=== PATIENT | female | born 1955 | race Caucasian/White ===

== ENCOUNTER → 2018-10-30 | Outpatient (CLI) | payer BC ==
--- NOTE | 2018-10-30 12:50 | RADIOLOGY REPORT (SQ) ---
EXAM DESCRIPTION: CHEST PA/LATERAL COMPLETED DATE/TIME: 10/30/2018 12:28 pm REASON FOR STUDY: PRE-OP COMPARISON: None. EXAM PARAMETERS: NUMBER OF VIEWS: two views TECHNIQUE: Digital Frontal and Lateral radiographic views of the chest acquired. RADIATION DOSE: NA LIMITATIONS: none FINDINGS: LUNGS AND PLEURA: No opacities, masses or pneumothorax. No pleural effusion. MEDIASTINUM AND HILAR STRUCTURES: No masses or contour abnormalities. HEART AND VASCULAR STRUCTURES: Heart normal size. No evidence for failure. BONES: No acute findings. HARDWARE: None in the chest. OTHER: No other significant finding. IMPRESSION: NO SIGNIFICANT RADIOGRAPHIC FINDING IN THE CHEST. TECHNICAL DOCUMENTATION: JOB ID: [id number] [employer]- All Rights Reserved Reading location - IP/workstation name: [email or web address]
[2018-10-30 13:10] LABS: APPEARANCE,URINE SLIGHTLY-CLOUDY; BILIRUBIN,URINE NEGATIVE (NEGATIVE); COLOR,URINE AMBER; GLUCOSE, URINE NEGATIVE (NEGATIVE); KETONES,URINE TRACE mg/dL (NEGATIVE); LEUKOCYTE ESTERASE,URINE TRACE (NEGATIVE); NITRITE,URINE NEGATIVE (NEGATIVE); PROTEIN,URINE 30 mg/dL (NEGATIVE); UROBILINOGEN,URINE NEGATIVE mg/dL (<2.0)
[2018-10-30 13:22] LABS: ABSOLUTE BASOPHILS # (AUTO) 0.1 10^3/uL (0.0-0.2); ABSOLUTE LYMPHOCYTES (AUTO) 2.9 10^3/uL (0.5-4.7); ABSOLUTE MONOCYTES (AUTO) 0.9 10^3/uL (0.1-1.4); ABSOLUTE NEUT (AUTO) 5.8 10^3/uL (1.7-8.2); BASOPHILS % (AUTO) 1.1 % (0-2); EOSINOPHILS % (AUTO) 0.5 % (0-6); HEMATOCRIT 45.4 % (36.0-47.0); HEMOGLOBIN 15.5 g/dL (12.0-15.5); LYMPHOCYTES % (AUTO) 29.9 % (13-45); MEAN CORPUSCULAR HEMOGLOBIN 31.3 pg (27.0-33.4); MEAN CORPUSCULAR HGB CONC 34.2 g/dL (32.0-36.0); MEAN CORPUSCULAR VOLUME 92 fl (80-97); MONOCYTES % (AUTO) 9.3 % (3-13); PLATELET COUNT 361 10^3/uL (150-450); RED BLOOD COUNT 4.97 10^6/uL (3.72-5.28); RED CELL DISTRIBUTION WIDTH 13.4 % (11.5-14.0); SEGMENTED NEUTROPHILS % (AUTO) 59.2 % (42-78); TOTAL CELLS COUNTED % (AUTO) 100 %; WHITE BLOOD COUNT 9.8 10^3/uL (4.0-10.5)
[2018-10-30 13:40] LABS: ANION GAP 11 (5-19); BLOOD UREA NITROGEN 11 mg/dL (7-20); CALCIUM 9.8 mg/dL (8.4-10.2); CARBON DIOXIDE 25 mmol/L (22-30); CHLORIDE 100 mmol/L (98-107); GLUCOSE 98 mg/dL (75-110); POTASSIUM 4.8 mmol/L (3.6-5.0)
--- NOTE | 2018-10-30 23:06 | EKG REPORT ---
SEVERITY:- ABNORMAL ECG - SINUS TACHYCARDIA PROBABLE INFERIOR INFARCT, OLD CONSIDER POSTERIOR WALL INVOLVEMENT : Confirmed by: Deena Jerez 30-Oct-2018 23:05:08
== END ==
LOC: OD 11:50
PROVIDERS: ATTEND Orthopaedic Surgery
DX: Z01.818 Encounter for other preprocedural examination (principal)
CPT/HCPCS: 36415; 71046; 80048; 81001; 85025; 93005; 93010

== ENCOUNTER → 2018-11-07 | Outpatient (CLI) | payer BC ==
--- NOTE | 2018-11-07 12:22 | WOMENS IMAGING REPORT ---
EXAM DESCRIPTION: BILAT SCREENING MAMMO W/CAD COMPLETED DATE/TIME: 11/07/2018 10:32 am REASON FOR STUDY: Z12.31 SCREENING MAMMO Z12.31 ENCNTR SCREEN MAMMOGRAM FOR MALIGNANT NEOPLASM OF B RE COMPARISON: None. TECHNIQUE: Standard craniocaudal and mediolateral oblique views of each breast recorded using [employer] l acquisition. LIMITATIONS: None. FINDINGS: No masses, calcifications or architectural distortion. No areas of suspicion. Read with the assistance of CAD. .[facility] - R2 Cenova Version 1.3 .[facility] - R2 Cenova Version 1.3 .[facility] - R2 Cenova Version 2.4 .[facility] [place] - R2 Cenova Version 2.4 .[facility] - R2 [employer] Officer Chief Version 9.2 IMPRESSION: NORMAL MAMMOGRAM. BIRADS 1. BREAST DENSITY: b. There are scattered areas of fibroglandular density. BIRAD: 1 NEGATIVE RECOMMENDATION: ROUTINE SCREENING COMMENT: The patient has been notified of the results by letter per SA requirements. Additional no tification policies are in place for contacting patient with suspicious or incomplete findings. Quality ID #225: The [employer] recommends an annual screening mammogram for women aged 40 years or over. This facility utilizes a reminder system to ensure that all patients receive reminder letters, and/or direct phone calls for appointments. This includes reminders for routine scr eening mammograms, diagnostic mammograms, or other Breast Imaging Interventions when appropriate. Th is patient will be placed in the appropriate reminder system. The [employer] (ACR) has developed recommendations for screening MRI of the breast s in certain patient populations, to be used in conjunction with mammography. Breast MRI surveillanc e may be appropriate for women with more than 20% lifetime risk of developing breast cancer as deter mined by genetic testing, significant family history of the disease, or history of mantle radiation f or Hodgkins Disease. ACR Practice Guidelines 2008. TECHNICAL DOCUMENTATION: FINDING NUMBER: (1) ASSESSMENT: (1) JOB ID: [id number] [employer]- All Rights Reserved Reading location - IP/workstation name: [email or web address]
== END ==
LOC: WI 10:01
PROVIDERS: ATTEND Nurse Practitioner Family
DX: Z12.31 Encounter for screening mammogram for malignant neoplasm of breast (principal)
CPT/HCPCS: 77067

== ENCOUNTER 2018-11-17 10:00 | Inpatient (IN) | payer BC ==
[2018-11-24] MEDS ORDERED: LANSOPRAZOLE 15 MG TAB.RAP.DR PO PRN (05:00)
[2018-11-24] MEDS ORDERED: BUPIVACAINE INJ/PF LIPOSOME/PF 266 MG/20 ML SDV INJ PRN (05:00)
[2018-11-24] MEDS ORDERED: VANCOMYCIN HCL 1,000 MG in DEXTROSE 5%-WATER 250 ML IV PRN (05:00)
[2018-11-24] MEDS ORDERED: IBUPROFEN 800 MG in NORMAL SALINE 250 ML IV PRN (05:00)
[2018-11-24] MEDS ORDERED: OXYCODONE HCL SR 10 MG TABLET PO PRN (05:00)
[2018-11-24] MEDS ORDERED: LACTATED RINGERS 1000 ML IV PRN (05:00)
[2018-11-24] MEDS ORDERED: LIDOCAINE 0.5% INJ-PF (5 MG/ML) 50 ML SDV SUBCUT PRN (05:00)
[2018-11-24] MEDS ORDERED: CEFAZOLIN INJ 1 GM VIAL IV PRN (05:00)
[2018-11-24] MEDS ORDERED: CEFAZOLIN INJ 1 GM VIAL ONE (05:20)
[2018-11-24] MEDS ORDERED: LANSOPRAZOLE 15 MG TAB.RAP.DR ONE (05:20)
[2018-11-24] MEDS ORDERED: OXYCODONE HCL SR 10 MG TABLET PO ONE (05:20)
[2018-11-24] MEDS ORDERED: BUPIVACAINE HCL 0.5%-EPI 1:200000 INJ/PF 30 ML VIAL ONE (08:49)
[2018-11-24] MEDS ORDERED: PROPOFOL INJ 200 MG/20 ML VIAL IV ONE (09:05)
[2018-11-24] MEDS ORDERED: ONDANSETRON HCL INJ/PF 4 MG/2 ML SDV ONE (09:05)
[2018-11-24] MEDS ORDERED: TRANEXAMIC ACID INJ/PF 1,000 MG/10 ML SDV IV ONE ×3 (09:05→13:34)
[2018-11-24] MEDS ORDERED: MIDAZOLAM 2 MG/2 ML INJ ONE (09:05)
[2018-11-24] MEDS ORDERED: PROMETHAZINE HCL INJ 25 MG/1 ML VIAL IV PRN (10:38)
[2018-11-24] MEDS ORDERED: FENTANYL CITRATE INJ/PF 100 MCG/2 ML AMPUL IV PRN ×3 (10:38)
[2018-11-24] MEDS ORDERED: MEPERIDINE HCL/PF INJ 25 MG/1 ML DISP.SYRIN IV PRN (10:38)
[2018-11-24] MEDS ORDERED: DIPHENHYDRAMINE HCL 50 MG/ML VIAL IV PRN ×2 (10:38→11:13)
[2018-11-24] MEDS ORDERED: MORPHINE SULFATE 10 MG/ML INJ IV PRN ×4 (10:38→11:13)
[2018-11-24] MEDS ORDERED: ZOLPIDEM TARTRATE 5 MG TABLET PO PRN (11:13)
[2018-11-24] MEDS ORDERED: ONDANSETRON HCL INJ/PF 4 MG/2 ML SDV IV PRN (11:13)
[2018-11-24] MEDS ORDERED: RINGERS SOLUTION,LACTATED 1,000 ML IV PRN (11:13)
[2018-11-24] MEDS ORDERED: MAG HYDROX/AL HYDROX/SIMETH SUSP 30 ML UDCUP PO PRN (11:13)
[2018-11-24] MEDS ORDERED: ONDANSETRON 4 MG TAB.RAPDIS PO PRN (11:13)
[2018-11-24] MEDS ORDERED: RINGERS SOLUTION,LACTATED 500 ML IV ONE ×2 (12:30→15:30)
--- NOTE | 2018-11-24 12:38 | RADIOLOGY REPORT (SQ) ---
EXAM DESCRIPTION: PELVIS AP COMPLETED DATE/TIME: 11/24/2018 12:20 pm REASON FOR STUDY: Post Op Long Cassette in PACU M16.11 UNILATERAL PRIMARY OSTEOARTHRITIS, RIGHT HI P COMPARISON: None. NUMBER OF VIEWS: One view TECHNIQUE: Digital radiographic images of the pelvis post-procedure LIMITATIONS: None. FINDINGS: Post left total hip replacement with acetabular component anchored with a single screw. P artial absence of the medial acetabular wall indicated with arrows. Remainder of the bony pelvis is otherwise unremarkable. Moderate osteoarthritis right hip IMPRESSION: Post left total hip replacement in good alignment. TECHNICAL DOCUMENTATION: JOB ID: [id number] [employer]- All Rights Reserved Reading location - IP/workstation name: [email or web address]
[2018-11-24] MEDS: OXYCODONE HCL IR 5 MG TABLET PO PRN ×2 (14:48→21:12)
[2018-11-24] MEDS: IBUPROFEN 800 MG in NORMAL SALINE 250 ML IV SCH (17:03)
[2018-11-24] MEDS: SENNOSIDES/DOCUSATE 8.6-50 MG 1 EACH TABLET PO SCH (17:03)
[2018-11-24] MEDS: MORPHINE SULFATE 10 MG/ML INJ IV PRN (19:51)
[2018-11-24] MEDS: ACETAMINOPHEN 325 MG TABLET PO PRN (21:12)
[2018-11-24] MEDS: OXYCODONE HCL SR 10 MG TABLET PO SCH (21:13)
[2018-11-24] MEDS ORDERED: NICOTINE 14 MG/24 HR PATCH.TD24 TD PRN (21:30)
[2018-11-24] MEDS ORDERED: VANCOMYCIN HCL 1,000 MG in DEXTROSE 5%-WATER 250 ML IV ONE (23:13)
[2018-11-25] MEDS: IBUPROFEN 800 MG in NORMAL SALINE 250 ML IV SCH ×2 (01:54→11:01)
[2018-11-25] MEDS: MORPHINE SULFATE 10 MG/ML INJ IV PRN (02:07)
[2018-11-25 05:19] LABS: HEMATOCRIT 25.4 % (36.0-47.0); HEMOGLOBIN 8.7 g/dL (12.0-15.5); MEAN CORPUSCULAR HEMOGLOBIN 31.5 pg (27.0-33.4); MEAN CORPUSCULAR HGB CONC 34.3 g/dL (32.0-36.0); MEAN CORPUSCULAR VOLUME 92 fl (80-97); PLATELET COUNT 236 10^3/uL (150-450); RED BLOOD COUNT 2.77 10^6/uL (3.72-5.28); RED CELL DISTRIBUTION WIDTH 13.9 % (11.5-14.0); WHITE BLOOD COUNT 9.8 10^3/uL (4.0-10.5)
[2018-11-25] MEDS: OXYCODONE HCL IR 5 MG TABLET PO PRN ×2 (05:21→11:44)
[2018-11-25] MEDS: ACETAMINOPHEN 325 MG TABLET PO PRN ×2 (05:22→11:03)
[2018-11-25 05:43] LABS: ANION GAP 6 (5-19); BLOOD UREA NITROGEN 7 mg/dL (7-20); CALCIUM 8.1 mg/dL (8.4-10.2); CARBON DIOXIDE 25 mmol/L (22-30); CHLORIDE 105 mmol/L (98-107); GLUCOSE 112 mg/dL (75-110); POTASSIUM 4.3 mmol/L (3.6-5.0); SODIUM 136.2 mmol/L (137-145)
[2018-11-25] MEDS ORDERED: LANSOPRAZOLE 30 MG TAB.RAP.DR PO SCH (06:00)
[2018-11-25] MEDS ORDERED: BISACODYL 5 MG TABEC PO PRN (06:47)
--- NOTE | 2018-11-25 07:06 | PDOC DISCHARGE SUMMARY ---
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 Patient is admitted currently for an elective left hip arthroplasty. Hospital Course Hospital Course: Patient is admitted through the operating where she undergoes uncomplicated left hip arthroplasty. She is returned to floor in satisfactory condition. She ambulates 80 feet on the day of surgery with physical therapy. Patient has minimal pain. Physical Exam Vital Signs: Temp Pulse Resp BP Pulse Ox 36.8 C 89 17 102/64 97 11/24/18 23:16 11/24/18 23:16 11/24/18 23:16 11/24/18 23:16 11/24/18 23:16 Intake & Output 11/24/18 11/25/18 11/26/18 06:59 06:59 06:59 Intake Total 5950 Output Total 500 Balance 5450 Weight 79.1 kg Physical Exam: Moderately built middle-aged white female lying in a hospital bed. is adjacent to her in a recliner. Patient is minor if any distress. General appearance: PRESENT: no acute distress, mild distress Head exam: PRESENT: normocephalic Respiratory exam: PRESENT: unlabored Cardiovascular exam: PRESENT: RRR Pulses: PRESENT: +1 pedal pulses bilateral Vascular exam: PRESENT: normal capillary refill GI/Abdominal exam: PRESENT: soft Rectal exam: PRESENT: deferred Extremities exam: PRESENT: other - Leg lengths are equal. Left hip dressing clean dry and intact. Distal neurovascular examination is intact. Neurological exam: PRESENT: alert, awake, oriented to person, oriented to place, oriented to time, oriented to situation. ABSENT: motor sensory deficit Psychiatric exam: PRESENT: appropriate affect, normal mood. ABSENT: homicidal ideation, suicidal ideation Skin exam: PRESENT: dry, intact, warm. ABSENT: cyanosis, rash Results Laboratory Results: 11/25/18 04:39 11/25/18 04:39 11/24/18 11/25/18 11/25/18 08:26 04:39 04:39 WBC 9.8 RBC 2.77 L Hgb 8.7 L Hct 25.4 L MCV 92 MCH 31.5 MCHC 34.3 RDW 13.9 Plt Count 236 Sodium 136.2 L Potassium 4.3 Chloride 105 Carbon Dioxide 25 Anion Gap 6 BUN 7 Creatinine 0.55 Est GFR ( Amer) > 60 Est GFR (Non-Af Amer) > 60 Glucose 112 H Calcium 8.1 L Blood Type O POSITIVE Antibody Screen NEGATIVE Impressions: Pelvis X-Ray 11/24/18 11:14 IMPRESSION: Post left total hip replacement in good alignment. Status: Imported from PACS Qualifiers - * PATIENT BEING DISCHARGED WITH ANY OF THE FOLLOWING DIAGNOSIS: No VTE patient discharged on overlapping Therapy?: Yes Plan Discharge Plan: 63-year-old white female status post left hip arthroplasty with an excellent early result. Patient be discharged home with home health services and DME. Follow-up with Dr. Navarro and [facility] for surgery in 2 weeks for staple removal. Time Spent: Less than 30 Minutes
[2018-11-25] MEDS ORDERED: POLYETHYLENE GLYCOL 3350 POWDER 17 GM/1 PACKET PO SCH (10:00)
[2018-11-25] MEDS ORDERED: ASPIRIN 81 MG TABLET, ENT COATED PO SCH (10:00)
[2018-11-25] MEDS ORDERED: PRENATAL VITAMIN W DHA CAPSULE PO SCH (10:00)
[2018-11-25] MEDS: OXYCODONE HCL SR 10 MG TABLET PO SCH (10:28)
[2018-11-25] MEDS: SENNOSIDES/DOCUSATE 8.6-50 MG 1 EACH TABLET PO SCH (11:02)
[2018-11-25 13:08] VITALS: BP 110/64
--- NOTE | 2018-12-02 07:17 | Operative Report ---
Operative Report DATE OF SURGERY: 11/24/18 PREOPERATIVE DIAGNOSIS: Arthritis right hip OPERATION: Right hip arthroplasty SURGEON: EETLVINA SALGADO ANESTHESIA: Spinal TISSUE REMOVED OR ALTERED: Femoral head to pathology ESTIMATED BLOOD LOSS: 100 PROCEDURE: Implants used: Femur: Linton Accolade 2 stem size 5 Acetabular shell: 56 mm hemispherical shell Liner: 36 mm flat cross-link polyethylene liner Head: A 6 mm chrome cobalt head standard neck The patient is placed in a left lateral decubitus position on the operating table. The right lower extremity and hindquarter is prepped and draped in a sterile fashion. A curvilinear incision was made over the greater trochanter a posterior approach the hip was taken. The femoral head is dislocated and the femoral neck transected using an oscillating saw. Attention was next turned to the acetabulum. Soft tissues cleared off the acetabulum using electrocautery. The acetabulum was then prepared using a series of hemispherical reamers until a 56 millimeters reamer is seated. Subsequently a 56 millimeters Mike titanium hemispherical shell is impacted into position and secured with one screw. A standard flat 36 millimeters cross- link liner is impacted into the shell. Attention was next turned to the femur. Access is gained to the femoral canal using a box osteotome to the piriformis fossa. The femur is then prepared using a series of broaches until a number 5 broach is seated. A trial reduction was now performed using a 36 millimeters head with standard neck. Preoperative leg length was recreated and is excellent anterior posterior stability. A decision was made to proceed with the above construct. All trial implants were removed. The wound is irrigated with pulsed lavage. A number 5 stem is impacted into the femoral canal. A trial reduction was again performed with a 36 mm head and a standard neck. Findings as previously. The hip was dislocated one last time and the final chrome-cobalt head is impacted onto the trunnion. The hip was reduced. Wound is copiously irrigated with pulsed lavage. Sent closed in layers using interrupted Vicryl followed by joaquin. A sterile dressing is applied and the patient's returned to recovery room in satisfactory patient.
== END 2018-11-25 13:55 | disposition home health service (06) | DRG 470 ==
LOC: INOR 11-24 08:11 → 4W 11-24 13:51
PROVIDERS: ADMIT Orthopaedic Surgery; ATTEND Orthopaedic Surgery
PROC: 0SRB02Z Replacement of Left Hip Joint with Metal on Polyethylene Synthetic Substitute, Open Approach (ICD-10-PCS; principal; 2018-11-24 10:15)
DX: M16.10 Unilateral primary osteoarthritis, unspecified hip (principal); Q65.89 Other specified congenital deformities of hip; Z79.82 Long term (current) use of aspirin
CPT/HCPCS: 01214; 36415; 72170; 80048; 85027; 86850; 86900; 86901; 88304; 88311; 90471; 90686; 94799; C1776; G0008; J0690; J1741; J2250; J2270; J2405; J2704; J3370; J3490; J7050; J7060; J7120

== ENCOUNTER → 2019-04-21 | Outpatient (CLI) | payer BC ==
--- NOTE | 2019-04-21 17:38 | RADIOLOGY REPORT (SQ) ---
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 Additional thin section axial T2, axial and coronal T1 pre and post contrasted images through the gabo tral skullbase to include the 7th and 8th nerves. Images stored on PACS. CONTRAST TYPE AND DOSE: 10 mL Dotarem. RENAL FUNCTION: Not indicated. ACR Type II contrast agent associated with few, if any, unconfounded cases of NSF LIMITATIONS: None. FINDINGS: ANATOMY: No developmental anomalies. Normal vascular flow voids. Pituitary fossa normal. CSF SPACES: Normal in size and contour. No hemorrhage. CEREBRUM: No MR evidence of acute intracranial hemorrhage, mass effect, or midline shift. No large t erritory acute ischemic change. FLAIR and T2 weighted images demonstrate moderate small vessel ischemic change in the hemispheric whi te matter, chronic in appearance. POSTERIOR FOSSA: Mild chronic white matter disease in the mid reggie. No hemorrhage. No edema, masses, or mass effect. Internal auditory canals, cerebellopontine angles, mastoids normal. 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 Enhancement is best shown on coronal image 23 and 24, and axial images 6-9. DIFFUSION IMAGING: Negative for acute or subacute infarction. ORBITS: No masses. Globes normal. PARANASAL SINUSES: No fluid levels. Mucosa normal. OTHER: No other significant finding. 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 EVIDENCE OF ACUTE STROKE: NO. TECHNICAL DOCUMENTATION: JOB ID: [id number]- All Rights Reserved Reading location - IP/workstation name: [email or web address]
== END ==
LOC: RAD 14:49
PROVIDERS: ATTEND Nurse Practitioner Family
DX: G93.89 Other specified disorders of brain (principal)
CPT/HCPCS: 70553; A9576

== ENCOUNTER → 2019-06-26 | Outpatient (CLI) | payer BC ==
[2019-06-26 11:11] LABS: ABSOLUTE BASOPHILS # (AUTO) 0.1 10^3/uL (0.0-0.2); ABSOLUTE EOSINOPHILS # (AUTO) 0.2 10^3/uL (0.0-0.6); ABSOLUTE LYMPHOCYTES (AUTO) 2.3 10^3/uL (0.5-4.7); ABSOLUTE NEUT (AUTO) 5.7 10^3/uL (1.7-8.2); BASOPHILS % (AUTO) 0.9 % (0-2); EOSINOPHILS % (AUTO) 1.7 % (0-6); HEMATOCRIT 40.8 % (36.0-47.0); HEMOGLOBIN 13.5 g/dL (12.0-15.5); LYMPHOCYTES % (AUTO) 25.2 % (13-45); MEAN CORPUSCULAR HEMOGLOBIN 28.4 pg (27.0-33.4); MEAN CORPUSCULAR HGB CONC 33.2 g/dL (32.0-36.0); MEAN CORPUSCULAR VOLUME 85 fl (80-97); MONOCYTES % (AUTO) 10.4 % (3-13); PLATELET COUNT 339 10^3/uL (150-450); RED BLOOD COUNT 4.78 10^6/uL (3.72-5.28); RED CELL DISTRIBUTION WIDTH 16.8 % (11.5-14.0); SEGMENTED NEUTROPHILS % (AUTO) 61.8 % (42-78); TOTAL CELLS COUNTED % (AUTO) 100 %; WHITE BLOOD COUNT 9.3 10^3/uL (4.0-10.5)
[2019-06-26 11:27] LABS: ANION GAP 9 (5-19); BLOOD UREA NITROGEN 5 mg/dL (7-20); CALCIUM 9.2 mg/dL (8.4-10.2); CARBON DIOXIDE 26 mmol/L (22-30); CHLORIDE 103 mmol/L (98-107); GLUCOSE 102 mg/dL (75-110); POTASSIUM 4.4 mmol/L (3.6-5.0)
[2019-06-26 11:31] LABS: APPEARANCE,URINE CLEAR; BILIRUBIN,URINE NEGATIVE (NEGATIVE); COLOR,URINE YELLOW; GLUCOSE, URINE NEGATIVE (NEGATIVE); KETONES,URINE NEGATIVE (NEGATIVE); LEUKOCYTE ESTERASE,URINE MODERATE (NEGATIVE); NITRITE,URINE NEGATIVE (NEGATIVE); PROTEIN,URINE NEGATIVE (NEGATIVE); URINE SPECIFIC GRAVITY 1.011; UROBILINOGEN,URINE NEGATIVE mg/dL (<2.0)
--- NOTE | 2019-06-26 11:50 | RADIOLOGY REPORT (SQ) ---
EXAM DESCRIPTION: CHEST PA/LATERAL COMPLETED DATE/TIME: 06/26/2019 11:18 am REASON FOR STUDY: PRE-OP COMPARISON: 03/28/2019 EXAM PARAMETERS: NUMBER OF VIEWS: two views TECHNIQUE: Digital Frontal and Lateral radiographic views of the chest acquired. RADIATION DOSE: NA LIMITATIONS: none FINDINGS: LUNGS AND PLEURA: No opacities, masses or pneumothorax. No pleural effusion. MEDIASTINUM AND HILAR STRUCTURES: No masses or contour abnormalities. HEART AND VASCULAR STRUCTURES: Heart normal size. No evidence for failure. BONES: No acute findings. HARDWARE: None in the chest. OTHER: No other significant finding. IMPRESSION: NO SIGNIFICANT RADIOGRAPHIC FINDING IN THE CHEST. TECHNICAL DOCUMENTATION: JOB ID: [id number] [employer]- All Rights Reserved Reading location - IP/workstation name: [email or web address]
--- NOTE | 2019-06-26 23:06 | EKG REPORT ---
SEVERITY:- NORMAL ECG - SINUS RHYTHM : Confirmed by: Corrie Moe MD 26-Jun-2019 23:05:27
== END ==
LOC: OD 09:51
PROVIDERS: ATTEND Orthopaedic Surgery
DX: Z01.810 Encounter for preprocedural cardiovascular examination (principal); Z01.811 Encounter for preprocedural respiratory examination; Z01.812 Encounter for preprocedural laboratory examination; M16.11 Unilateral primary osteoarthritis, right hip
CPT/HCPCS: 36415; 71046; 80048; 81001; 85025; 93005; 93010

== ENCOUNTER 2019-07-13 06:36 | Inpatient (IN) | payer BC ==
[~2019-07-13 06:36] MED LIST: BUPIVACAINE INJ/PF LIPOSOME/PF 266 MG/20 ML SDV INJ PRN; CEFAZOLIN INJ 1 GM VIAL IV PRN; CEFAZOLIN INJ 1 GM VIAL ONE; IBUPROFEN 800 MG in NORMAL SALINE 250 ML IV PRN; OXYCODONE HCL SR 10 MG TABLET PO ONE; OXYCODONE HCL SR 10 MG TABLET PO PRN; PANTOPRAZOLE SODIUM 20 MG TABLET.DR PO ONE; PANTOPRAZOLE SODIUM 20 MG TABLET.DR PO PRN; VANCOMYCIN HCL 1,000 MG in DEXTROSE 5%-WATER 250 ML IV PRN
[2019-07-13] MEDS ORDERED: BUPIVACAINE HCL 0.5%-EPI 1:200000 INJ/PF 30 ML VIAL ONE (07:42)
[2019-07-13] MEDS ORDERED: FENTANYL CITRATE INJ/PF 100 MCG/2 ML AMPUL ONE (08:13)
[2019-07-13] MEDS ORDERED: PROPOFOL INJ 200 MG/20 ML VIAL IV ONE (08:13)
[2019-07-13] MEDS ORDERED: ONDANSETRON HCL INJ/PF 4 MG/2 ML SDV ONE (08:13)
[2019-07-13] MEDS ORDERED: MIDAZOLAM 2 MG/2 ML INJ ONE (08:13)
[2019-07-13] MEDS ORDERED: LIDOCAINE 2% INJ-PF (20 MG/ML) 10 ML AMPUL ONE (08:13)
[2019-07-13] MEDS ORDERED: DEXAMETHASONE SOD PHOSPHATE INJ 4 MG/1 ML VIAL ONE (08:13)
[2019-07-13] MEDS ORDERED: TRANEXAMIC ACID INJ/PF 1,000 MG/10 ML SDV ONE ×2 (08:30→10:51)
[2019-07-13] MEDS ORDERED: MEPERIDINE HCL/PF INJ 25 MG/1 ML DISP.SYRIN IV PRN (09:35)
[2019-07-13] MEDS ORDERED: DIPHENHYDRAMINE HCL 50 MG/ML VIAL IV PRN ×2 (09:35→09:50)
[2019-07-13] MEDS ORDERED: FENTANYL CITRATE INJ/PF 100 MCG/2 ML AMPUL IV PRN ×3 (09:35)
[2019-07-13] MEDS ORDERED: OXYCODONE-ACETAMINOPHEN 5-325 MG TABLET PO PRN ×2 (09:35)
[2019-07-13] MEDS ORDERED: ONDANSETRON HCL INJ/PF 4 MG/2 ML SDV IV PRN ×2 (09:35→09:50)
[2019-07-13] MEDS ORDERED: PROMETHAZINE HCL INJ 25 MG/1 ML VIAL IV PRN ×2 (09:35)
[2019-07-13] MEDS ORDERED: ACETAMINOPHEN 325 MG TABLET PO PRN (09:50)
[2019-07-13] MEDS ORDERED: RINGERS SOLUTION,LACTATED 1,000 ML IV PRN (09:50)
[2019-07-13] MEDS ORDERED: OXYCODONE HCL IR 5 MG TABLET PO PRN (09:50)
[2019-07-13] MEDS ORDERED: ZOLPIDEM TARTRATE 5 MG TABLET PO PRN (09:50)
[2019-07-13] MEDS ORDERED: MAG HYDROX/AL HYDROX/SIMETH SUSP 30 ML UDCUP PO PRN (09:50)
[2019-07-13] MEDS ORDERED: ONDANSETRON 4 MG TAB.RAPDIS PO PRN (09:50)
--- NOTE | 2019-07-13 09:56 | Operative Report ---
Operative Report DATE OF SURGERY: 07/13/19 PREOPERATIVE DIAGNOSIS: Right hip arthritis OPERATION: Right hip arthroplasty SURGEON: ETELVINA SALGADO ANESTHESIA: Spinal TISSUE REMOVED OR ALTERED: Femoral head to pathology ESTIMATED BLOOD LOSS: 50 PROCEDURE: Implants used: Femur: Mike Accolade 2 stem size 4 Acetabular shell: 52 mm hemispherical shell Liner: 36 mm flat cross-link polyethylene liner Head: 36 mm chrome cobalt head +5 neck The patient is placed in a left lateral decubitus position on the operating table. The right lower extremity and hindquarter is prepped and draped in a sterile fashion. A curvilinear incision was made over the greater trochanter a posterior approach the hip was taken. The femoral head is dislocated and the femoral neck transected using an oscillating saw. Attention was next turned to the acetabulum. Soft tissues cleared off the acetabulum using electrocautery. The acetabulum was then prepared using a series of hemispherical reamers until a 52 millimeters reamer is seated. Subsequently a 52 millimeters Mike titanium hemispherical shell is impacted into position. A standard flat 36 millimeters cross-link liner is impacted into the shell. Attention was next turned to the femur. Access is gained to the femoral canal using a box osteotome to the piriformis fossa. The femur is then prepared using a series of broaches until a number 4 broach is seated. A trial reduction was now performed using a 36 millimeters head with +5 neck. Preoperative leg length was recreated and is excellent anterior posterior stability. A decision was made to proceed with the above construct. All trial implants were removed. The wound is irrigated with pulsed lavage. A number 4 stem is impacted into the femoral canal. A trial reduction was again performed with a 36 mm head and a +5 neck. Findings as previously. The hip was dislocated one last time and the final chrome-cobalt head is impacted onto the trunnion. The hip was reduced. Wound is copiously irrigated with pulsed lavage. Sent closed in layers using interrupted Vicryl followed by joaquin. A sterile dressing is applied and the patient's returned to recovery room in satisfactory patient.
[2019-07-13] MEDS ORDERED: SERTRALINE HCL 20 MG PO SCH (10:00)
[2019-07-13] MEDS ORDERED: TRANEXAMIC ACID INJ/PF 1,000 MG/10 ML SDV IV ONE (11:00)
--- NOTE | 2019-07-13 11:24 | RADIOLOGY REPORT (SQ) ---
EXAM DESCRIPTION: PELVIS AP COMPLETED DATE/TIME: 07/13/2019 11:05 am REASON FOR STUDY: Post Op Long Cassette in PACU Z96.649 PRESENCE OF UNSPECIFIED ARTIFICIAL HIP MAYR INT COMPARISON: None. NUMBER OF VIEWS: Two views TECHNIQUE: Digital radiographic images of the right hip post-procedure. LIMITATIONS: None. FINDINGS: BONES: No worrisome or unexpected findings post-procedure. Pre-existing left hip replacem ent in good alignment. DEVICE: Right hip replacement, acetabular component without screw. SOFT TISSUES: No worrisome findings. Expected postoperative soft tissue changes. IMPRESSION: SATISFACTORY POSTOPERATIVE RIGHT HIP. TECHNICAL DOCUMENTATION: JOB ID: [id number] [employer]- All Rights Reserved Reading location - IP/workstation name: [email or web address]
[2019-07-13] MEDS: ASPIRIN 81 MG TABLET, ENT COATED PO SCH (12:10)
[2019-07-13] MEDS: OXYCODONE HCL SR 10 MG TABLET PO SCH ×2 (12:12→21:05)
[2019-07-13] MEDS: SENNOSIDES/DOCUSATE 8.6-50 MG 1 EACH TABLET PO SCH (17:01)
[2019-07-13] MEDS: IBUPROFEN 800 MG in NORMAL SALINE 250 ML IV SCH (17:01)
[2019-07-13] MEDS ORDERED: VANCOMYCIN HCL 1,000 MG in DEXTROSE 5%-WATER 250 ML IV ONE (21:50)
[2019-07-14] MEDS: IBUPROFEN 800 MG in NORMAL SALINE 250 ML IV SCH ×2 (01:42→10:16)
[2019-07-14] MEDS ORDERED: PANTOPRAZOLE SODIUM 40 MG TABLET.DR PO SCH (06:00)
[2019-07-14 06:15] LABS: HEMATOCRIT 28.8 % (36.0-47.0); HEMOGLOBIN 9.7 g/dL (12.0-15.5); MEAN CORPUSCULAR HEMOGLOBIN 28.7 pg (27.0-33.4); MEAN CORPUSCULAR HGB CONC 33.6 g/dL (32.0-36.0); MEAN CORPUSCULAR VOLUME 86 fl (80-97); PLATELET COUNT 263 10^3/uL (150-450); RED BLOOD COUNT 3.37 10^6/uL (3.72-5.28); RED CELL DISTRIBUTION WIDTH 15.9 % (11.5-14.0); WHITE BLOOD COUNT 9.5 10^3/uL (4.0-10.5)
[2019-07-14 06:38] LABS: BLOOD UREA NITROGEN 5 mg/dL (7-20); CALCIUM 8.3 mg/dL (8.4-10.2); CARBON DIOXIDE 28 mmol/L (22-30); CHLORIDE 105 mmol/L (98-107); GLUCOSE 119 mg/dL (75-110); POTASSIUM 4.1 mmol/L (3.6-5.0)
[2019-07-14 07:17] LABS: ANION GAP 4 (5-19)
--- NOTE | 2019-07-14 07:17 | Discharge Summary ---
Discharge Summary (SDC) - Discharge Final Diagnosis: Right hip arthritis Date of Surgery: 07/13/19 Discharge Date: 07/14/19 Condition: Good Treatment or Instructions: Weightbearing as tolerated ambulation Referrals: ETELVINA SALGADO MD [ACTIVE STAFF] - 07/28/19 2:00 pm Discharge Diet: Regular Respiratory Treatments at Home: Deep Breathing/Coughing Discharge Activity: Balance Activity w/Rest, No tub bath Home Care Assistance: Home Health Activities Provided by Home Health Agency: Residential, Physical Therapy Adaptive Devices on Discharge: Standard Walker Report the Following to Your Physician Immediately: Shortness of Breath, Fever over 101 Degrees, Drainage-Foul Smelling
[2019-07-14] MEDS: ASPIRIN 81 MG TABLET, ENT COATED PO SCH (09:09)
[2019-07-14] MEDS: OXYCODONE HCL SR 10 MG TABLET PO SCH (09:10)
[2019-07-14] MEDS: SENNOSIDES/DOCUSATE 8.6-50 MG 1 EACH TABLET PO SCH (09:10)
[2019-07-14] MEDS ORDERED: SERTRALINE HCL 50 MG TABLET PO SCH (10:00)
[2019-07-14] MEDS ORDERED: PRENATAL VITAMIN W DHA CAPSULE PO SCH (10:00)
[2019-07-14 10:34] VITALS: BP 107/64
[2019-07-14] MEDS ORDERED: INFLUENZA QUAD (6MOS+) 2019-20 VAC 0.5 ML SYR IM ONE (11:15)
[2019-07-15] MEDS ORDERED: INFLUENZA QUAD (6MOS+) 2019-20 VAC 0.5 ML SYR IM ONE (08:00)
--- NOTE | 2019-07-27 08:33 | PDOC DISCHARGE SUMMARY ---
Impression - Admit/DC Date/PCP Admission Date/Primary Care Provider: 07/13/19 06:36 KVNG BOYD RAMIREZP-C Discharge Date: 07/14/19 - Additional Information Resuscitation Status: Full Code Discharge Diet: Regular Discharge Activity: Balance Activity w/Rest, No tub bath Referrals: ETELVINA SALGADO MD [ACTIVE STAFF] - 07/28/19 2:00 pm Home Medications: Omeprazole 20 mg PO DAILYP PRN 07/13/19 Red Yeast Rice 1,000 mg PO DAILY 07/13/19 Sertraline HCl [Zoloft] 25 mg PO DAILY 07/13/19 Tramadol HCl [Ultram 50 mg Tablet] 50 mg PO Q6HP PRN 07/13/19 History of Present Illiness History of Present Illness: MEGHAN KANG is a 64 year old female Patient is a 64-year-old white female admitted for an elective hip arthroplasty Hospital Course Hospital Course: Patient is middle-aged white female admitted through the operating room for elective hip arthroplasty. She goes through procedure without complication. She was returned to floor in satisfactory vision. She makes excellent progress with physical therapy. Hip dressing remains clean dry and intact. Physical Exam Vital Signs: Temp Pulse Resp BP Pulse Ox 36.8 C 77 17 107/64 92 07/14/19 10:32 07/14/19 10:32 07/14/19 10:32 07/14/19 10:32 07/14/19 10:32 General appearance: PRESENT: no acute distress, mild distress Head exam: PRESENT: normocephalic Respiratory exam: PRESENT: unlabored Cardiovascular exam: PRESENT: RRR Vascular exam: PRESENT: normal capillary refill GI/Abdominal exam: PRESENT: soft Rectal exam: PRESENT: deferred Musculoskeletal exam: PRESENT: other - Right hip dressing clean dry and intact. Neurological exam: PRESENT: alert, awake, oriented to person, oriented to place, oriented to time, oriented to situation. ABSENT: motor sensory deficit Psychiatric exam: PRESENT: appropriate affect, normal mood. ABSENT: homicidal ideation, suicidal ideation Skin exam: PRESENT: dry, intact, warm. ABSENT: cyanosis, rash Results Laboratory Results: WBC 9.5 10^3/uL (4.0-10.5) 07/14/19 04:51 RBC 3.37 10^6/uL (3.72-5.28) L 07/14/19 04:51 Hgb 9.7 g/dL (12.0-15.5) L 07/14/19 04:51 Hct 28.8 % (36.0-47.0) L 07/14/19 04:51 MCV 86 fl (80-97) 07/14/19 04:51 MCH 28.7 pg (27.0-33.4) 07/14/19 04:51 MCHC 33.6 g/dL (32.0-36.0) 07/14/19 04:51 RDW 15.9 % (11.5-14.0) H 07/14/19 04:51 Plt Count 263 10^3/uL (150-450) 07/14/19 04:51 Sodium 137.3 mmol/L (137-145) 07/14/19 04:51 Potassium 4.1 mmol/L (3.6-5.0) 07/14/19 04:51 Chloride 105 mmol/L (98-107) 07/14/19 04:51 Carbon Dioxide 28 mmol/L (22-30) 07/14/19 04:51 Anion Gap 4 (5-19) L 07/14/19 04:51 BUN 5 mg/dL (7-20) L 07/14/19 04:51 Creatinine 0.54 mg/dL (0.52-1.25) 07/14/19 04:51 Est GFR ( Amer) > 60 (>60) 07/14/19 04:51 Est GFR (MDRD) Non-Af > 60 (>60) 07/14/19 04:51 Glucose 119 mg/dL (75-110) H 07/14/19 04:51 Calcium 8.3 mg/dL (8.4-10.2) L 07/14/19 04:51 Blood Type O POSITIVE 07/13/19 06:54 Antibody Screen NEGATIVE 07/13/19 06:54 Impressions: Pelvis X-Ray 07/13/19 09:52 IMPRESSION: SATISFACTORY POSTOPERATIVE RIGHT HIP. Plan Plan of Treatment: Patient to be discharged on a weightbearing as tolerated amatory basis with home health services and DME. Follow-up with Dr. Salgado [facility] for surgery in 2 weeks for staple removal. Time Spent: Less than 30 Minutes Stroke Is this a Stroke Patient?: No Stroke Pt being discharged on Anti-thrombolytic therapy?: Yes Acute Heart Failure - Is this a Heart Failure Patient?: No
== END 2019-07-14 11:27 | disposition home health service (06) | DRG 470 ==
LOC: INOR 06:36 → 4S 11:44
PROVIDERS: ADMIT Orthopaedic Surgery; ATTEND Orthopaedic Surgery
PROC: 0SR902A Replacement of Right Hip Joint with Metal on Polyethylene Synthetic Substitute, Uncemented, Open Approach (ICD-10-PCS; principal; 2019-07-13 08:45)
PROC: 3E0234Z Introduction of Serum, Toxoid and Vaccine into Muscle, Percutaneous Approach (ICD-10-PCS; 2019-07-14)
DX: M16.11 Unilateral primary osteoarthritis, right hip (principal); F32.9 Major depressive disorder, single episode, unspecified; F17.210 Nicotine dependence, cigarettes, uncomplicated; Z23 Encounter for immunization; Z79.899 Other long term (current) drug therapy
CPT/HCPCS: 01214; 36415; 72170; 80048; 85027; 86850; 86900; 86901; 88304; 88311; 90686; 94799; C1776; J0690; J1100; J1741; J2250; J2405; J2704; J3010; J3370; J3490; J7050; J7060

== ENCOUNTER → 2020-05-03 | Outpatient (CLI) | payer BC, MEDICARE ==
--- NOTE | 2020-05-03 13:24 | WOMENS IMAGING REPORT ---
EXAM DESCRIPTION: BILAT SCREENING MAMMO W/CAD IMAGES COMPLETED DATE/TIME: 05/03/2020 12:02 pm REASON FOR STUDY: Z12.31 ENCOUNTER FOR SCREENING MAMMOGRAM FOR MALIGNANT NEOPLASM OF BREAST Z12.31 ENCNTR SCREEN MAMMOGRAM FOR MALIGNANT NEOPLASM OF PEPE COMPARISON: 11/07/2018. EXAM PARAMETERS: Standard craniocaudal and mediolateral oblique views of each breast recorded using digital acquisition. Read with the assistance of CAD. .[facility] - [employer] Version 9.2 LIMITATIONS: None. FINDINGS: No suspicious masses, suspicious calcifications or architectural distortion. No areas of c oncern. IMPRESSION: NEGATIVE MAMMOGRAM. BIRADS 1 BREAST DENSITY: b. There are scattered areas of fibroglandular density. BIRAD: ASSESSMENT: 1 NEGATIVE RECOMMENDATION: ROUTINE SCREENING COMMENT: The patient has been notified of the results by letter per MQSA requirements. Additional no tification policies are in place for contacting patient with suspicious or incomplete findings. Quality ID #225: The [employer] recommends an annual screening mammogram for women aged 40 years or over. This facility utilizes a reminder system to ensure that all patients receive reminder letters, and/or direct phone calls for appointments. This includes reminders for routine scr eening mammograms, diagnostic mammograms, or other Breast Imaging Interventions when appropriate. Th is patient will be placed in the appropriate reminder system. TECHNICAL DOCUMENTATION: FINDING NUMBER: (1) ASSESSMENT: (1) JOB ID: [id number] [employer]- All Rights Reserved Reading location - IP/workstation name: [email or web address]
== END ==
LOC: WI 11:33
PROVIDERS: ATTEND Nurse Practitioner Family
DX: Z12.31 Encounter for screening mammogram for malignant neoplasm of breast (principal)
CPT/HCPCS: 77067